=== PATIENT | male | born 1990 | race Caucasian/White ===

== ENCOUNTER 2019-08-30 19:40 | Emergency (ER) | payer OTHER ==
[~2019-08-30] VITALS: Ht 177.8 cm; Wt 102.3 kg
[2019-08-30 21:42] VITALS: BP 114/72; PULSE 89; TEMP 99.1
== END 2019-08-30 21:42 | disposition home or self-care (01) ==
LOC: COL.ER 19:40
DX: B34.9 Viral infection, unspecified (principal)

== ENCOUNTER 2019-09-13 06:39 | Emergency (ER) | payer OTHER ==
[~2019-09-13] VITALS: Ht 208.3 cm; Wt 100.0 kg
[2019-09-13 06:42] VITALS: BP 133/89; TEMP 96.6
[2019-09-13] MEDS ORDERED: FLEXERIL5 MG PO (06:57)
[2019-09-13] MEDS ORDERED: FLEXERIL 1010 MG/TAB PO (06:57)
[2019-09-13] MEDS ORDERED: PREDNISONE20 MG PO (07:17)
[2019-09-13] MEDS ORDERED: NEURONTIN300 MG/CAP PO (07:17)
[2019-09-13 07:36] LABS: BASO % 0.8 % (0.0-2.0); EOS # 0.1 (0.0-0.7); GRAN # 1.7 (1.4-6.5); GRAN % 34.2 % (42.2-75.2); HEMATOCRIT 43.4 % (42.0-52.0); HEMOGLOBIN 14.7 g/dl (13.5-18.0); LYMPH # 2.4 (1.2-3.4); LYMPH % 48.9 % (20.0-51.0); MEAN CELL VOLUME 91 fl (80.0-100.0); MEAN CORPUSCULAR HEMOGLOBIN 31 pg (27.0-31.0); MEAN CORPUSCULAR HGB CONC 34 g/dl (33.0-37.0); MEAN PLATELET VOLUME 9.9 fl (7.4-10.4); MONO # 0.7 (0.1-0.6); MONO % 13.3 % (1.7-9.3); PLATELET COUNT 195 K/mm3 (130-400); RED BLOOD COUNT 4.78 M/mm3 (4.20-5.60)
[2019-09-13 07:53] LABS: ANION GAP 8 mmol/L (7-16); BLOOD UREA NITROGEN 20 mg/dL (9-20); CALCIUM 9.4 mg/dL (8.4-10.2); CARBON DIOXIDE 29 mmol/L (22-30); CHLORIDE 105 mmol/L (98-107); CREATININE, serum 1.12 (0.66-1.25); GLUCOSE 92 mg/dL (74-106); SODIUM 142 mmol/L (137-145)
[2019-09-13 07:59] LABS: C-REACTIVE PROTEIN < 0.5 mg/dL (0.0-0.9)
[2019-09-13 08:26] LABS: ERYTHROCYTE SEDIMENTATION RATE 11 mm/hr (0-15)
[2019-09-13] MEDS ORDERED: LIDODERM 5% PATC1 EA TP (08:32)
[2019-09-13] MEDS ORDERED: NORCO 325 MG-51 TAB PO (08:33)
[2019-09-13 08:50] VITALS: PULSE 74
== END 2019-09-13 08:50 | disposition home or self-care (01) ==
LOC: COL.ER 06:39
PROVIDERS: Emergency Medicine
DX: M54.5 Low back pain (principal)
CPT/HCPCS: J1170

== ENCOUNTER 2020-09-23 18:33 | Emergency (ER) | payer OTHER ==
[~2020-09-23] VITALS: Ht 177.8 cm; Wt 97.7 kg
[~2020-09-23 18:33] MED LIST: FLEXERIL 1010 MG/TAB PO; FLEXERIL5 MG PO; LIDODERM 5% PATC1 EA TP; NEURONTIN300 MG/CAP PO; NORCO 325 MG-51 TAB PO; PREDNISONE20 MG PO
[2020-09-23 18:43] VITALS: TEMP 97.4
[2020-09-23 19:06] VITALS: BP 132/78; PULSE 76
== END 2020-09-23 19:06 | disposition home or self-care (01) ==
LOC: COL.ER 18:33
DX: L23.7 Allergic contact dermatitis due to plants, except food (principal); Z79.52 Long term (current) use of systemic steroids
CPT/HCPCS: J1040

== ENCOUNTER 2022-05-19 22:09 | Emergency (ER) | payer OTHER ==
[~2022-05-19] VITALS: Ht 177.8 cm; Wt 102.3 kg
[2022-05-19 22:14] VITALS: BP 135/77; PULSE 94; TEMP 97.8
== END 2022-05-19 23:18 | disposition home or self-care (01) ==
LOC: COL.ER 22:09
DX: S93.602A Unspecified sprain of left foot, initial encounter (principal); X50.1XXA Overexertion from prolonged static or awkward postures, initial encounter; Y93.39 Activity, other involving climbing, rappelling and jumping off